=== PATIENT | female | born 1995 | race Caucasian/White ===

== ENCOUNTER 2024-11-05 09:45 | Outpatient (REF) | payer OTHER, SELFPAY ==
--- OUTSIDE RECORDS SUMMARY | 2024-11-05 10:56 | XMS_ITS | Continuity of Care Document ---
Author Organization [facility] Address [address] [place] [address] Phone Care Team Providers Care Control System Computer Scientist Name Role Phone Timi Barker MD Unavailable Unavailable Allergies, Adverse Reactions, Alerts Substance Reaction Status Criticality carbamazepine Bruising, rash Active No Informati on gabapentin Homicidal thoughts Active No Inform ation Procedures Procedure Date Office/outpatient visit, est Office/outpatient visit, est Office/outpatient visit, est EEG Awake Office/outpatient visit, est Extended Advance Directives Directive Yes / No Effective Date File Name No Information Encounters Encounter Description Practice Location Reason(s) For Visit Diagnoses Date Provider Providers Copied on Encounter Office/outpa tient visit, est [facility], [address] [place] [address], [facility], tel:[phone] [facility] Follow Up of Facial Pain (chief complaint) Trigeminal neuralgiaBody mass index (BMI) 19 or less, adult 0 Mj Capellan. [address] [place] [address], [id number], . tel:[phone] Referring Provider: Jin Link MD [place], [address] [place] [address], [id number]. tel:[phone] [facility], [address] [place] [address], [id number], tel:[phone] [facility] Follow Up of Facial Pain (chief complaint) Trigeminal neuralgia 9 Mj Capellan. [address] [place] [address], [facility], . tel: [phone] Referring Provider: Jin Heath, [address] [place] [address], [id number]. tel:[phone] Office/outpa tient visit, est [facility], [address] [place] [address], [address], tel:[phone] [facility] Follow Up of Facial Pain (chief complaint) Trigeminal neuralgia Sep-2 0-201 9 Barker Timi. [address] [place], [address], [place]. tel: [phone] Referring Provider: Jin Heath, [address] [place] [address], [id number]. tel:[phone] Office/outpa tient visit, est [facility], [address] [place] [address], [facility], tel:[phone] [facility] Follow Up of Facial Pain (chief complaint) Trigeminal neuralgiaBody mass index (BMI) 19 or less, adult Mar-2 0-201 9 Mj Martínezter. [address] [place] [address], [address], [place]. tel: [phone] Referring Provider: Jin Heath, [address] [place] [address], [id number]. tel:[phone] [facility], [address] [place] [address], [facility], [place] tel:[phone] [facility] Trigeminal neuralgia Dec-2 7-201 8 Mj Capellan. [address] [place], [address], [place]. tel: [phone] Office/outpa tient visit, est [facility], [address] [place] [address], [address], [place] tel:[phone] [facility] Follow Up of Facial Pain (chief complaint) Trigeminal neuralgia Dec-2 0-201 8 Mj Capellan. [address] [place] [address], [address], [place]. tel: [phone] [facility], [address] [place] [address] [place], [address] [place] [address] tel:[phone] [facility] Facial Pain (chief complaint) Body mass index (BMI) 19 or less, adultTrigemin al neuralgia 8 Mj Capellan. [address] [place], [place], [address] [place] [address]. tel:[phone] Referring Provider: Jin Link MD [facility], [address] [place] [address], [id number]. tel:[phone] Family History Family Member Type Diagnosis Age At Onset Maternal grandmother Problem (finding) Diabetes mellit us Mother Problem (finding) Thyroid disorder Maternal aunt Problem (finding) chromes disease Paternal grandfather Problem (finding) Diabetes mellit us Maternal grandfather Problem (finding) Diabetes mellit us Father Problem (finding) Pancreatitis Paternal grandmother Problem (finding) Diabetes mellit us Payers Payer name Insurance type Covered republican ID Authoriza tion(s) [id number] Social History Type Description Quantity Date Captured Comments Alcohol Use Details Unknown Caffeine Use Details Unknown Tobacco Use Status Smoking Status No Information Sex Female Vital Signs Date / Time: Height Weight BMI Pulse Rate Blood Pressure Temperature Respiratory Rate Body Surface Area Head Circumference BMI percentile Pulse Ox Inhaled Ox 10:25 AM 64.00 in 103.00 lbs 17.6 8 kg/m eter (2) 56 /min 116/49 mm[Hg] 10:59 AM 53 /min 100/55 mm[Hg] Chief Complaint And Reason For Visit From encounter dated '11/19/2019 10:15'. Follow Up of Facial Pain (chief complaint). Description: Onset: 11 years ago. The problem is severe. The problem has not changed. The frequency of pain is persistent. The patient reports the pain level is 10/10. Location of pain is right jaw and right temporal. The patient describes the pain as sharp and dull. Symptoms are triggered by encountering a breeze. Symptoms are not triggered by cold. Risk factors include family history of trigeminal neuralgia. Associated symptoms include tooth pain, vision loss left, aura, vein in jaw will pulsate, migraines, nightmares and trouble sleeping and biting nails. Plan Of Treatment Date Type Action Status Goal Dietary education for weight gain completed Goal Dietary education for weight gain completed Goal Dietary education for weight gain completed Goal Tobacco cessation counseling completed Referral Ordered: EEG Awake ordered Referral Ordered: [facility] Appointment date/timeframe: 10/05/2018 ordered Referral Ordered: MRI Brain W/Dye Appointment date/timeframe: 09/26/2018 ordered History Of Present Illness Encounter Date Complaint History Of Prese nt Illness Follow Up of Facial Pain Onset: 11 years ago. The problem is severe. The problem has not changed. The frequency of pain is persistent. The patient reports the pain level is 10/10. Location of pain is right jaw and right temporal. The patient describes the pain as sharp and dull. Symptoms are triggered by encountering a breeze. Symptoms are not triggered by cold. Risk factors include family history of trigeminal neuralgia. Associated symptoms include tooth pain, vision loss left, aura, vein in jaw will pulsate, migraines, nightmares and trouble sleeping and biting nails. Follow Up of Facial Pain (comments) The patient said she is still not taking any medications and she is still not taking the Lamictal because of the side effects of dizziness and sleepiness. She has been taking chocolate CBD bars from [place], [place]. Follow Up of Facial Pain Onset: 11 years ago. The problem is severe. The problem has not changed. The frequency of pain is persistent. The patient reports the pain level is 10/10. Location of pain is right jaw and right temporal. The patient describes the pain as sharp and dull. Symptoms are triggered by encountering a breeze and cold. Risk factors include family history of trigeminal neuralgia. Associated symptoms include tooth pain, vision loss left, aura, vein in jaw will pulsate, migraines, nightmares, trouble sleeping and biting nails. Follow Up of Facial Pain Onset: 11 years ago. The problem is severe. The problem has not changed. The frequency of pain is persistent. The patient reports the pain level is 10/10. Location of pain is right jaw and right temporal. The patient describes the pain as sharp and dull. Symptoms are triggered by encountering a breeze. Symptoms are not triggered by cold. Risk factors include family history of trigeminal neuralgia. Associated symptoms include tooth pain, vision loss left, aura, vein in jaw will pulsate, migraines, nightmares, trouble sleeping and biting nails. Follow Up of Facial Pain (comments) She states the Soma and Lamotrigine worked well but she does not know if she wants to start back on them because of the side effects. She states her doctor mentioned they could do gamma knife or a balloon procedure but she states she was not sure about those procedures. She states having three surgeries. 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 She states they did a washout and removed the mesh but the infection is still present. The infection is also in her bones and muscles. She was on a pic line for a couple of months.She is having some pain from the Trigeminal neuralgia but it is not as severe yet. Follow Up of Facial Pain Onset: 4 months ago. Duration of pain when it occurs is continuous. The problem is severe. The problem has not changed. The patient reports the pain level is 10/10. Location of pain is right jaw and right temporal. The patient describes the pain as sharp and dull. Symptoms are triggered by encountering a breeze. Symptoms are not triggered by cold. Risk factors include family history of trigeminal neuralgia and history of Trigeminal neuralgia. Associated symptoms include tooth pain, vision loss left, aura, vein in jaw will pulsate, migraines, nightmares, trouble sleeping and and biting nails. Follow Up of Facial Pain (comments) The patient states that she was started on Baclofen but she does not like the way it makes her feel. It makes her nauseous and gives her a headache. She also states that the Lyrica we started her on makes her sleepy and nauseous. She is going to have vascular surgery with [facility]. She wanted to know about possibly getting injections for nerve blockage. Test Results:-EEG: Normal Follow Up of Facial Pain Onset: 1 month ago. Duration of pain when it occurs is continuous. The problem is severe. The problem has not changed. The patient reports the pain level is 10/10. Location of pain is right jaw and right temporal. The patient describes the pain as sharp and dull. Symptoms are triggered by encountering a breeze. Symptoms are not triggered by cold. Risk factors include family history of trigeminal neuralgia and history of trigeminal neuralgia. Associated symptoms include tooth pain, vision loss left, aura, vein and jaw will start pulsing, migraines, nightmares, trouble sleeping and and biting nails. Follow Up of Facial Pain (comments) She has tried Gabapentin, it did not work and it caused he to be very aggressive. She has not tried Lyrica. She has been having problems with hallucinating and being delusional. She thought her daughter was possessed and it freaked her out. She is also paranoid but no suicidal thoughts. It felt very real to her but she kept reminding herself that it was not real. The patient does experience some Curry Vu but no seizures or loss of consciousness. At this time she is not seeing a psychiatrist.Test Results:-LP: OP 8.5cm of H2O, zero oligoclonal bands, serum Albumin 5.0, CSF Albumin 13, CSF Glucose 57, IgG Synthesis Ratio (-) 1.9, CSF Total Protein 32, CSF VDRL non reactive, WBC 1, Lymphocytes 100, RBC 0, IgG 913.-MRI Brain: Negative StudyLab Results:-CMP was normal except: A/G Ratio 2.3, BUN 5, and BUN/Creatinine 7-RODERICK, CBC, CPK, Hep Panel, Lyme Disease, MMA(183), PT, PTT, RPR, Sed Rate, TSH, West Nile, JOHN, HIV and VB12(447) were all normal. Facial Pain (comments) For six d ays she had the facial pain. It was initially brought on by cold. It does seem to get exacerbated by movements such as eating. She has a history of Trigeminal Neuralgia on the left that started April 25, 2018.She has urinary urgency. She states some time when standing up her legs become tingly. She states when having a flareup from the Trigeminal Neuralgia she loses vision. She will see dots first and then has the vision loss on the left for a couple of minutes. She is not having the pain right now. She states the pain does not occur every day. The pain on the right is triggered by cold. She has noticed stress can trigger the pain on the left side.She also reports having trouble remembering. She does not remember the of her children. She gets lost. She is able to cook, clean and take care of the house. When driving she has to use the GPS.Testing:-MRI Brain: No acute intracranial abnormality, or gross mass, or abnormal enhancement. Incidental minimal sinus disease. Facial Pain Onset: 3 weeks a go. Duration of pain when it occurs is continuous. The problem is severe. The problem has not changed. The patient reports the pain level is 10/10. Location of pain is right jaw and right temporal. The patient describes the pain as sharp and dull. Symptoms are triggered by encountering a breeze and the cold. Risk factors include family history of trigeminal neuralgia and history of trigeminal neuralgia. Associated symptoms include tooth pain, vision loss left, aura, vein and jaw will start pulsing, migraines, nightmares, trouble sleeping and biting nails. Additional information: feels like she has an icepick in her ear and when that happens she gets a pain down the right side of her neck. Instructions Date Instruction Additional Infor dilia Dietary education for weight gai n Related to Body mass index (BMI) 19.9 or less, adult Dietary education for weight gai n Related to Body mass index (BMI) 19.9 or less, adult Dietary education for weight gai n Related to Body mass index (BMI) 19.9 or less, adult Assessments Type Assessment Date assessment Trigeminal neuralgia assessment Body mass index (BMI) 19.9 or le ss, adult Mental Status Date Cognitive Assessment Normal Orientation
[2024-11-05 13:05] LABS: MANUAL DIFF FLAG NO
[2024-11-05 13:20] LABS: Basophils Percent Auto 0.7 % (0-2); Eosinophils Absolute Auto 0.1 X10*3/uL (0.0-0.4); Eosinophils Percent Auto 1.8 % (0-4); Hematocrit 38.8 % (37.0-47.0); Hemoglobin 13.3 g/dl (12.0-16.0); Imm Gran Abs Auto 0.04 X10*3/uL (0.00-0.03); Imm Gran Pct Auto 0.9 % (0.0-0.4); Lymphocytes Absolute Auto 1.7 X10*3/uL (1.2-4.9); Lymphocytes Percent Auto 37.7 % (20-40); Mean Corpuscular HGB Conc 34.3 g/dl (31.0-35.0); Mean Corpuscular Hemoglobin 30.2 pg (27.0-33.0); Mean Corpuscular Volume 88.2 fL (80.0-98.0); Mean Platelet Volume 11.2 fL (9.4-12.3); Monocytes Absolute Auto 0.4 X10*3/uL (0.1-1.2); Monocytes Percent Auto 8.8 % (2-11); Neutrophils Absolute Auto 2.3 x10*3/uL (2.0-8.3); Neutrophils Percent Auto 50.1 % (45-73); Platelet Count 180 X10*3/uL (160-400); Red Cell Distribution Width 11.5 % (11.0-16.0); White Blood Count 4.5 X10*3/uL (4.8-10.8)
[2024-11-05 13:42] LABS: Rheumatoid Factor < 13.0 IU/mL (<15.0)
[2024-11-05 13:49] LABS: Alanine Aminotransferase 9 U/L (0-31); Albumin Level 4.4 g/dL (3.5-5.0); Alkaline Phosphatase 55 U/L (39-117); Anion Gap 11 (12-20); Aspartate Amino Transferase 19 U/L (5-31); Bilirubin Total 0.2 mg/dL (0.0-1.0); Blood Urea Nitrogen 10 mg/dL (9-16); C Reactive Protein < 0.04 mg/dL (< or = 0.50); Carbon Dioxide 25 mmol/L (22-29); Chloride 108 mmol/L (96-108); Estimated Glomerular Filt Rate > 60; Glucose Random 82 mg/dL (60-115); Iron 52 mcg/dL (30-160); Percent Iron Saturation 30 % (15-50); Potassium 3.7 mmol/L (3.3-5.1); Sodium 140 mmol/L (135-145); Total Iron Binding Capacity 176 mcg/dL (228-428); Total Protein 6.7 g/dL (6.5-8.0); Unsaturated Iron Binding 124 ug/dL
[2024-11-05 13:59] LABS: Erythrocyte Sedimentation Rate 2 MM/HR (0-20)
[2024-11-05 14:10] LABS: Ferritin 18 ng/mL (10-122); Free T4 (Free Thyroxine) 0.81 ng/dL (0.71-1.85); TSH reflex Free T4 1.35 uIU/mL (0.32-4.0); Vitamin D 25-OH Total 55.3 ng/mL (>30)
[2024-11-05 14:12] LABS: Folate 9.8 ng/mL (> or = 4.0); Vitamin B12 422 pg/mL (200-900)
[2024-11-06 15:39] LABS: Anti DNA DS Antibody 1 IU/mL
[2024-11-07 00:24] LABS: Thyroglobulin 2.7 ng/mL; Thyroglobulin Antibodies 3 IU/mL (< or = 1); Thyroid Peroxidase Antibodies 1 IU/mL (<9)
[2024-11-08 12:54] LABS: Anti Nuclear Antibody Screen POSITIVE (NEGATIVE)
== END 2024-11-05 09:46 | disposition home or self-care (01) ==
LOC: HO.HMGCLDS 09:45
PROVIDERS: PCP Internal Medicine; Visit Provider Internal Medicine
DX: R76.8 Other specified abnormal immunological findings in serum (principal); E06.3 Autoimmune thyroiditis; R53.83 Other fatigue
CPT/HCPCS: 36415; 80053; 82306; 82607; 82728; 82746; 83540; 84432; 84439; 84443; 85025; 85652; 86038; 86039; 86140; 86225; 86376; 86431; 86800

== ENCOUNTER 2024-11-16 11:50 | Outpatient (REF) | payer OTHER, SELFPAY ==
--- OUTSIDE RECORDS SUMMARY | 2024-11-16 14:00 | XMS_ITS ---
Author Organization [facility] MAIN OFFICE Address [address] [place] [id number] Care Team Providers Care [place] Name Role Phone MARTI VENCES Primary Care Provider DELONTE REYNOLDS [phone] Marti Vences DO Unavailable Unavailab le REASON FOR VISIT Med records Encounters Encounter Location Date Provider Diagnosis [address] [address] 08/23/2024 MARTI VENCES Plan Of Treatment No Information Progress Notes * JAN BROOKE RDOB:1994 (29 yo F)Acc No.[id number]:08/23/2024 Patient:?JAN BROOKE :1995???Age:29 Y???Sex:Female Address:[address] [place] [address] Natalya MA Roque * true * Date:? Generated for Printi ng/Romang/eTransmitting on:?11/16/2024 02:00 PM EST
--- OUTSIDE RECORDS SUMMARY | 2024-11-16 14:00 | XMS_ITS ---
Author Organization [facility] MAIN OFFICE Address [address] [place] [address] Care Team Providers Care Government Relations Director Name Role Phone MARTI VENCES Primary Care Provider DELONTE REYNOLDS [phone] Marti Vences DO Unavailable Unavailab le REASON FOR VISIT Refills Medications Medication SIG (Take, Route, Frequency, Duration) Notes Start Date End Date Status Plaquenil 200 MG as directed Orally t wice a day for 90 days 08/09/2023 Active Abilify 20 MG 1 tablet Orally Once a day for 90 days 01/09/2024 Active Pristiq 100 MG 1 tablet Orally Once a day for 90 days 10/12/2023 Active Methylphenidate HCl 10 MG 1.5 tablets Or ally three times per day for 30 days 07/30/2024 Active Encounters Encounter Location Date Provider Diagnosis [address] [address] 07/30/2024 MARTI VENCES Polyarthralgia M25.5 0 ; Moderate episode of recurrent major depressive disorder F33.1 ; Bipolar disorder, current episode mixed, moderate F31.62 and Attention deficit disorder without hyperactivity F98.8 Assessments Encounter Date Diagnosis (ICD Code) Assessment Notes Treatment Notes Treatment Clinical Notes Section Notes 07/30/2024 Polyarthralgia (ICD-10 - M25.50) 07/30/2024 Moderate episode of recurrent major depressive disorder (ICD-10 - F33.1) 07/30/2024 Bipolar disorder, current episode mixed, moderate (ICD-10 - F31.62) 07/30/2024 Attention deficit disorder without hyperactivity (ICD-10 - F98.8) Plan Of Treatment Medication Medication Name Sig Start Date Stop Date Notes Plaquenil 200 MG as directed Orally t wice a day for 90 days 08/09/2023 Vraylar 3 MG 1 capsule Orally Once a day 04/11/2024 Abilify 20 MG 1 tablet Orally Once a day for 90 days 01/09/2024 Pristiq 100 MG 1 tablet Orally Once a day for 90 days 10/12/2023 Methylphenidate HCl 10 MG 1.5 tablets Or ally three times per day for 30 days 07/30/2024 Progress Notes * JAIMEMOISES JAN RDOB:1994 (29 yo F)Acc No.[id number]:07/30/2024 Patient:?ZAY BROOKENAH R :1995???Age:29 Y???Sex:Female Address:[address] [place] [address] * Refills? Refill Plaquenil Tablet, 200 MG, Orally, 180, as directed, twice a day, 90 days, Refills=2 Refill Pristiq Tablet Extended Release 24 Hour, 100 MG, Orally, 90, 1 tablet, Once a day, 90 days, Refills=3 Refill Abilify Tablet, 20 MG, Orally, 90 Tablet, 1 tablet, Once a day, 90 days, Refills=2 Stop Vraylar Capsule, 3 MG, Orally, 1 capsule, Once a day Refill Methylphenidate HCl Tablet, 10 MG, Orally, 135, 1.5 tablets, three times per day, 30 days, Refills=0 * true * Date:? Generated for Walt chaparro/Jeannine/Vivian on:?11/16/2024 02:00 PM EST
--- OUTSIDE RECORDS SUMMARY | 2024-11-16 14:00 | XMS_ITS | Data Portability ---
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 MUST MEET 2 OUT OF 3 ELEMENTS: PROBLEMS, DATA OR RISK ELEMENT 1: PROBLEMS 1 OR MORE CHRONIC ILLNESS W/SEVERE EXACERBATION, PROGRESSION MAY REQUIRE HOSPITAL LEVEL CARE OR 1 ACUTE OR CHRONIC ILLNESS OR INJURY THAT POSES A THREAT TO LIFE OR BODILY FUNCTION ELEMENT 2: DATA: MUST MEET 2 OF 3 CATEGORIES CATEGORY 1 REVIEW OF PRIOR EXTERNAL NOTES REVIEW OF THE RESULTS ORDERING OF EACH TEST ASSESSMENT REQUIRING INDEPENDENT HISTORIAN(S) CATEGORY 2: INDEPENDENT INTERPRETATION OF TESTS BY ANOTHER PROVIDER/SPECIALI ST CATEGORY 3: DISCUSSION OF MGT OR TEST INTERPRETATION W/EXTERNAL PHYSICIAN/SPECIAL IST ELEMENT 3: RISK HIGH RISK OF MORBIDITY FROM ADDITIONAL DIAGNOSTIC TESTING OR TREATMENT PROVIDER MUST THOROUGHLY DOCUMENT EACH ELEMENT THAT IS COVERED Not available 10/23/2024 11:24:02 11/16/2024 11/16/2024 [id number] [place] [id number]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) [facility] MUST MEET 2 OUT OF 3 ELEMENTS: PROBLEMS, DATA OR RISK ELEMENT 1: PROBLEMS 1 OR MORE CHRONIC ILLNESS W/SEVERE EXACERBATION, PROGRESSION MAY REQUIRE HOSPITAL LEVEL CARE OR 1 ACUTE OR CHRONIC ILLNESS OR INJURY THAT POSES A THREAT TO LIFE OR BODILY FUNCTION ELEMENT 2: DATA: MUST MEET 2 OF 3 CATEGORIES CATEGORY 1 REVIEW OF PRIOR EXTERNAL NOTES REVIEW OF THE RESULTS ORDERING OF EACH TEST ASSESSMENT REQUIRING INDEPENDENT HISTORIAN(S) CATEGORY 2: INDEPENDENT INTERPRETATION OF TESTS BY ANOTHER PROVIDER/SPECIALI ST CATEGORY 3: DISCUSSION OF MGT OR TEST INTERPRETATION W/EXTERNAL PHYSICIAN/SPECIAL IST ELEMENT 3: RISK HIGH RISK OF MORBIDITY FROM ADDITIONAL DIAGNOSTIC TESTING OR TREATMENT PROVIDER MUST THOROUGHLY DOCUMENT EACH ELEMENT THAT IS COVERED Not available 11/16/2024 09:36:08 Plan of Treatment Reminders Order Date Submit Date Provider Last Modified By Organization Details Last Modified Time Details Appointments FOLLOW UP 15 2024 09:00A M DR CASTELLANO Not available Not available Not available FOLLOW UP 15 2024 03:45P M DR CASTELLANO Not available Not available Not available Lab RODERICK (antinucl ear antibodie s) screen, serum 2023 [facility] Not available 11/09/2024 12:21:50 C-reactiv e protein, quantitat fransico, serum or plasma 2023 Not available 10/23/2024 11:46:24 erythrocy te sedimenta tion rate by westergre n method 2023 Not available 10/23/2024 11:46:24 rf (rheumato id factor), serum 2023 Not available 10/23/2024 11:46:24 dsDNA Ab, serum 2023 Not available 10/23/2024 11:46:24 thyroid peroxidas e (tpo) Ab, serum 2023 Not available 10/23/2024 11:46:23 T4, free, serum 2023 Not available 10/23/2024 11:46:23 TSH + free T4, serum 2023 [facility] Not available 11/06/2024 12:35:12 thyroglob ulin Ab, serum 2023 [facility] Not available 11/07/2024 12:31:11 vitamin B12 + folate, serum or blood 2023 [facility] Not available 11/06/2024 12:35:12 vitamin D, 25-hydrox y, total, serum 2023 Not available 10/23/2024 11:46:24 CBC w/ auto diff 2023 024 Not available 10/23/2024 11:46:24 CMP, serum or plasma 2023 [facility] Not available 11/06/2024 12:35:12 iron + TIBC + ferritin, serum 2023 [facility] Not available 11/06/2024 12:35:12 C-reactiv e protein, quantitat fransico, serum or plasma 2024 [facility], [address] [place] [address], [id number], 11/16/2024 09:38:17 erythrocy te sedimenta tion rate by westergre n method 2024 [facility], [address] [place] [address], [id number], 11/16/2024 09:38:17 dsDNA Ab, serum 2024 [facility], [address] [place] [address], [id number], 11/16/2024 09:38:17 rf (rheumato id factor), serum 2024 [facility], [address] [place] [address], [id number], 11/16/2024 09:38:17 C3 + C4 (compleme nt), serum 2024 [facility], [address] [place] [address], [id number], 11/16/2024 09:38:17 sjogren antibody panel (ssa, ssb, ro, la), serum 2024 [email or web address] Not available 11/16/2024 10:24:50 anti-ssdn a Ab, serum 2024 [facility], [address] [place] [address], [id number], 11/16/2024 09:38:17 Referral rheumatol ogist referral 2024 025 [facility], [address] [place] [address], [id number], 11/16/2024 09:43:42 Procedures None recorded. Surgeries None recorded. Imaging None recorded. Medication Orders Seroquel 25 mg tablet 2023 [id number], [address], [place], [phone], 10/23/2024 11:35:57 Adderall 10 mg tablet 2023 024 [id number], [address], [place], [phone], 10/23/2024 11:35:57 Seroquel 50 mg tablet 2024 025 [id number], [address], [place], [phone], 11/16/2024 09:35:00 Adderall 10 mg tablet 2024 025 [facility] #[id number], [address], [place], [phone], 11/16/2024 09:34:59 Patient TargetsNo targets recorded. Patient Instructions Encounter Date Encounter Id Patient Instructions Last Modified By Organization Details Last Modified Time 10/23/2024 [id number] attention defici t hyperactivity disorder (ADHD) in adults: care instructions Not available 10/23/2024 11:35:51 Reason for Referral [employer] Referral for Anti-nuclear factor detected Referring Physician: Gabe Castellano, Internal Medicine, Encounter Date: 11/16/2024 Results Created Date Observation Date Name Description Value Unit Range Abnormal Flag Note LastModifiedBy Organization Detail LastModifiedTime Result Notes None recorded. Problems Name Problem SNOMED Code Status Onset Date Resolution Date Notes Provider Name and Address Organization Details Recorded Time Adult attentio n deficit hyperact ivity disorder 293827294 Active 2023 Gabe CastellanoDO [address] [place] [address], [phone], [facility] 4 11:16:38 Bipolar disorder 82195812 Active 2023 Gabe CastellanoDO [address] [place] [address], [address], [facility] 4 11:16:52 Trigemin al neuralgi a 77474284 Active 2023 s/p surgery brain X 4 including 2 decompres sions secondary to infection Gabe Castellano [address], [address], [facility] 4 11:21:13 Anti-nuc lear factor detected 106477683 Active 2023 Gabe Castellano [address], [address], [facility] 4 11:26:07 Autoimmu ne thyroidi tis 55334555 Active 2023 Gabe Castellano [address], [address], [facility] 4 11:28:56 Fatigue 86271612 Active 2023 Gabe Castellano [address], [address], [facility] 4 11:31:16 Problem Notes None recorded. Medical Equipment None Reported. Allergies Allergen ID Allergen Name Allergen Category Reaction Reaction Severity Criticality Documentation Date Start Date Code Code System Note Provider Name and Address Organization Details Recorded Time 8634 gabapenti n medicatio n other Not available Not available 10/23/2024 79635 [facility] 4 10:43:25 8635 carbamaze pine medicatio n rash Not available Not available 10/23/20242001 RxNorm Aristeo castro [facility] 4 10:43:38 8636 clonazepa m medicatio n Not available Not available Not available 10/23/2024 2598 [facility] 10:44:21 8637 acetamino phen / oxycodone medicatio n vomiting Not available Not available 10/23/2024 18276 3 [facility] 4 10:44:36 Medications Name Sig Start Date Stop Date Status Note LastModified by Organization Details LastModified Time quetiapine 25 mg tablet TAKE 1 TABLET BY MOUTH EVERY DAY active Not Available Not Available No t Available methylphenida te 10 mg tablet 10/23 completed Not Available Not Available Not Available ondansetron HCl 8 mg tablet active Not Available Not Available Not Available methylphenida te 5 mg tablet 10/23 completed Not Available Not Available Not Available prednisone 5 mg tablet 10/23 completed Not Available Not Available Not Available tretinoin 0.05 % topical cream active Not Available Not Availabl e Not Available sulfamethoxaz ole 800 mg-trimethopr im 160 mg tablet 10/23 completed Not Available Not Available Not Available triamcinolone acetonide 0.1 % topical cream 10/23 completed Not Available Not Available Not Available methocarbamol 750 mg tablet 10/23 completed Not Available Not Available Not Available hydroxychloro quine 200 mg tablet 10/23 completed Not Available Not Available Not Available ibuprofen 600 mg tablet 10/23 completed Not Available Not Available Not Available Adderall 10 mg tablet Take 1 tablet twice a day by oral route for 30 days. 2024 active Not Available Not Available Not Avai lable aripiprazole 20 mg tablet active Not Available Not Available Not Available aripiprazole 5 mg tablet 10/23 completed Not Available Not Available Not Available Ritalin LA 10 mg capsule,exten ded release 10/23 completed Not Available Not Available Not Available Seroquel 50 mg tablet Take 1 tablet every day by oral route for 30 days. 2024 active Not Available Not Available Not Avai lable desvenlafaxin e succinate ER 50 mg tablet,extend ed release 24 hr 10/23 completed Not Available Not Available Not Available desvenlafaxin e succinate ER 100 mg tablet,extend ed release 24 hr active Not Available Not Available Not Available diclofenac 1 % topical gel active Not Available Not Availabl e Not Available Addyi 100 mg tablet active Not Available Not Available Not Available Vraylar 1.5 mg capsule 10/23 completed Not Available Not Available Not Available hydroxychloro quine 100 mg tablet Take 1 tablet every day by oral route. active Not Available Not Available No t Available Vitals Date Recorded Body height Body mass index (BMI) Body weight Heart rate Oxygen saturation Oxygen saturation in Arterial blood by Pulse oximetry Systolic blood pressure Diastolic blood pressure Provider Name and Address Organization Details Last Updated DateTime 4 162.56 cm 18.2 kg/m2 55536.7 9 g 84 /min 100 % 100 % 126 mm[Hg] 60 mm[Hg] Aristeo Whittaker [facility] 4 10:51:54 Date Recorded Body height Body mass index (BMI) Body weight Heart rate Oxygen saturation Oxygen saturation in Arterial blood by Pulse oximetry Systolic blood pressure Diastolic blood pressure Provider Name and Address Organization Details Last Updated DateTime 5 162.56 cm 18 kg/m2 69802.2 g 89 /min 100 % 100 % 98 mm[Hg] 60 mm[Hg] Kristel John [facility] 5 09:05:08 Social History Question Answer Notes LastModified by Organizat ion Details LastModified Time Tobacco Smoking Status Current Every Day Smoker Vaping, Smoking Cessation Interest Aristeo castro [facility] 10/23/2024 10:49:07 What Was The Date Of Your Most Recent Tobacco Screening? 10/23/2024 [email or web address] Information not available 10/23/2024 Sex: Unknown Functional Status None recorded. Mental Status None recorded. Family History Nothing Reported. Medical History No medical history recorded. Gynecological HistoryNo gynecological history recorded. Obstetrics History GPAL:G 0 P 0 0 0 0 Past Encounters Encounter ID Performer Location Encounter Start Date Encounter Closed Date Diagnosis/Indication Diagnosis SNOMED-CT Code Diagnosis ICD10 Code Diagnosis Note [id number] Gabe Castellano DO [facility] [address],[place] [address] 10/23/2024 10:35:46 10/23/2024 11:39:12 Depression screening 107262356 Z13.31 hx of Adult atte ntion deficit hyperactivity disorder 443692796 F90.9 will stop methylphen and start adderall Trigeminal neuralgia 316 45372 G50.0 will try to get her on a program for iv infus Vyepti Anti-nucle ar factor detected 570276723 R76.8 had been on hydro chlor in the past but lupus was ruled out Autoimmune thyroiditis 63008944 E06.3 Fatigue 48412711 R53.83 [id number] Gabe Castellano DO [facility] [address],[place] [address] 11/16/2024 08:57:04 11/16/2024 09:43:42 Anti-nuclear factor detected 744221680 R76.8 had been on hydro chlor in the past but lupus was ruled out Depression screening 171 400974 Z13.31 hx of Adult atte ntion deficit hyperactivity disorder 051737983 F90.9 will stop methylphen and start adderall Health Concerns Section Related Observation LastModified by Organization Detai ls LastModified Time None Recorded Concern Status LastModified by Organization Details LastModified Time None Recorded Advance Directives Directive None Recorded Payers Encounter Date Sequence Insurance Name Policy Number Policy [place] Covered Member ID [place] Member ID Guarantor Name 10/23/2024 1 [employer] - DOS PRIOR TO 2024 - [employer] () Velma Ruiz [id number] Velma Ruiz 11/16/2024 1 [employer] - DOS ON OR AFTER 2024 - [employer] () Velma Ruiz [id number] Velma Ruiz Notes Date Note Type Note Provider Name a nd Address Organization Details Recorded Time 4 text/html here Gabe Castellano DO [address] [place] [address], [place], [address], [facility] 10/23/2024 11:37:37 5 text/html has taken the meds as prescibedrelates that overall felt better and relates has been more focused but this wears off and will have her go back to her unfocused staterelates in past has been on a bid tid dose patternthis had workedalso discussed the lab Gabe Castellano, DO [address] [facility], [place], [address], [facility] 11/16/2024 09:36:24 OBGyn Episode No OBEpisode recorded.
--- OUTSIDE RECORDS SUMMARY | 2024-11-16 14:00 | XMS_ITS | Continuity of Care Document ---
Author Name [facility] Organization [facility] Care Team Providers Care Straightener And Aligner Name Role Phone [facility] Unavailable Unavailable Problems Combined list of problems from Department of Defense and Veterans Affairs facilities. It does not include entries that were removed or entered in error. Problem Status Onset Date Problem Type Date of Resolution Comments Source Other mixed anxiety disorders Active Condition DoD Trigeminal neuralgia Active Condition D oD Primary dysmenorrhea Active Condition D oD Outpatient Physician Consultation Active Condition [facility] visit for: administrative purpose Inactive Condition [facility] exam with positive result Inactive Condition [facility] normal Inactive Condition [facility] pharyngitis acute viral Inactive Condition [facility] upper respiratory infection Inactive Condition [facility] Inactive Condition [facility] nausea with vomiting Inactive Condition [facility] Test Inactive Condition [facility] Medications Combined list of outpatient medications from Department of Defense and Veterans Affairs facilities.Medications provided include 1) outpatient medications from the last 15 months, and 2) patient-reported medications. Medication Details Route Status Patient Instructions Prescription Expires Prescription Number Last Dispense Date Ordering Provider Order Date Order Qty Source Addyi 100 mg tablet 100 mg, Oral, every day at bedtime, # 30 EA, 1 total refill(s ), Hard Stop Oral (given by mouth) Ordered 12/19/2024 30.0 Ambul at ory Pharmac y Amphetamine Aspartate 2.5mg + Amphetamine Sulfate 2.5mg + Dextroamphe tamine saccharate 2.5mg + Dextroamphe tamine Sulfate 2.5mg, Tablet, Oral Take or use exactly as directed .May impair driving. This prescrip tion cannot be refilled .Federal law prohibit s transfer of prescrip tion. 10/08/2024 [id number] 2023 60 [facility] amphetamine -dextroamph etamine 10 mg tablet 10 mg, Oral, BID, # 60 EA, 0 total refill(s ), Hard Stop Oral (given by mouth) Complet ed 10/08/2024 60.0 Ambulat ory Pharmac y ARIPiprazol e 20 MG ORAL TAB Do not drink alcohol. Take or use exactly as directed .Obtain advice for OTCs.May cause drowsine ss/dizzi ness.May impair driving. Check with your doctor before becoming . Active 02/28/2025 [id number] 4 2023 [facility] ARIPiprazol e 20 mg tablet 20 mg, Oral, Daily, # 90 EA, 3 total refill(s ), Hard Stop Oral (given by mouth) Ordered 02/28/2025 90.0 Ambul at ory Pharmac y ARIPiprazol e 5 MG ORAL TAB Do not drink alcohol. Take or use exactly as directed .Obtain advice for OTCs.May cause drowsine ss/dizzi ness.May impair driving. Check with your doctor before becoming . Active 01/08/2025 [id number] 4 2023 [facility] ARIPiprazol e 5 mg tablet 5 mg, Oral, Daily, # 30 EA, 1 total refill(s ), Hard Stop Oral (given by mouth) Discont inued 02/29/2024 30.0 Ambulat ory Pharmac y atenolol 25 mg tablet 25 mg, Oral, Daily, # 30 EA, 1 total refill(s ), Hard Stop Oral (given by mouth) Complet ed 07/24/2024 30.0 Ambulat ory Pharmac y atomoxetine 40 mg capsule 40 mg, Oral, every morning, # 30 EA, 1 total refill(s ), Hard Stop Oral (given by mouth) Complet ed 11/24/2023 30.0 Ambulat ory Pharmac y buPROPion XL 150 mg/24 hour tablet 150 mg, Oral, every morning, # 30 EA, 3 total refill(s ), Hard Stop Oral (given by mouth) Complet ed 02/17/2024 30.0 Ambulat ory Pharmac y CARIPRAZINE 1.5 MG ORAL CAP Obtain advice for OTCs.May cause drowsine ss/dizzi ness.May impair driving. Check with your doctor before becoming . Active 04/11/2025 [id number] 4 2023 [facility] clindamycin 2% vaginal cream [40g] See Rx Instruct ions, # 40 g, 0 total refill(s ), Hard Stop Complet ed 10/28/2023 40.0 Ambulat ory Pharmac y desvenlafax ine ER 100 mg tablet 100 mg, Oral, Daily, # 90 EA, 3 total refill(s ), Hard Stop Oral (given by mouth) Ordered 05/10/2025 90.0 Ambul at ory Pharmac y desvenlafax ine ER 100 mg tablet 100 mg, Oral, Daily, # 90 EA, 0 total refill(s ), Hard Stop Oral (given by mouth) Discont inued 02/29/2024 90.0 Ambulat ory Pharmac y desvenlafax ine ER 25 mg tablet 25 mg, Oral, Daily, # 30 EA, 1 total refill(s ), Hard Stop Oral (given by mouth) Discont inued 12/20/2023 30.0 Ambulat ory Pharmac y desvenlafax ine ER 50 mg tablet 50 mg, Oral, Daily, # 90 EA, 3 total refill(s ), Hard Stop Oral (given by mouth) Discont inued 12/20/2023 90.0 Ambulat ory Pharmac y DESVENLAFAX INE SUCC 100 MG ORAL TB24 Do not drink alcohol. Obtain advice for OTCs.May impair driving. Check with your doctor before becoming .Do not chew or crush. Active 02/28/2025 [id number] 4 2023 90 [facility] DESVENLAFAX INE SUCC 100 MG ORAL TB24 Do not drink alcohol. Obtain advice for OTCs.May impair driving. Check with your doctor before becoming .Do not chew or crush. Active 12/19/2024 [id number] 4 2023 90 [facility] DESVENLAFAX INE SUCC 50 MG ORAL TB24 Do not drink alcohol. Obtain advice for OTCs.May impair driving. Check with your doctor before becoming .Do not chew or crush. 10/11/2024 [id number] 3 2023 90 [facility] diclofenac 1% gel [100g] See Instruct ions, # 100 g, 2 total refill(s ), Hard Stop Ordered 05/10/2025 100.0 Ambul at ory Pharmac y diclofenac 1% gel [100g] See Rx Instruct ions, Topical, QID, # 200 g, 2 total refill(s ), Hard Stop Topica l (on the skin) Complet ed 11/24/2023 200[address] Morfin Prednisone Tablet 5 mg Oral Take with food/mil k.Take or use exactly as directed .Obtain advice for OTCs. 10/11/2024 [id number] 3 2023 30 [facility] FLIBANSERIN 100 MG ORAL TAB May cause drowsine ss.Obtai n advice for OTCs.May impair driving. Check with your doctor before becoming .Avoid grapefru it and grapefru it juice. Active 12/19/2024 [id number] 4 2023 30 [facility] HYDROcodone -acetaminop hen 7.5 mg-325 mg tablet See Instruct ions, Oral, # 20 EA, 0 total refill(s ), Hard Stop Oral (given by mouth) Complet ed 08/17/2023 20.0 Ambulat ory Pharmac y Hydroxychlo roquine Sulfate (Vargas) Tablet 200 mg Oral Take or use exactly as directed . 10/11/2024 [id number] 3 2023 180 [facility] hydrOXYzine hydrochlori de 25 mg tablet 50 mg, Oral, Daily, # 60 EA, 1 total refill(s ), Hard Stop Oral (given by mouth) Complet ed 11/24/2023 60.0 Ambulat ory Pharmac y hydrOXYzine pamoate 25 mg oral capsule TAKE 1 TO 2 CAPSULES BY MOUTH EVERY SIX HOURS NEEDED FOR ANXIETY, # 40 EA, 1 total refill(s ), Acute Complet ed 08/18/2022 40.0 Ambulat ory Pharmac y ibuprofen 600 mg tablet See Instruct ions, Oral, # 20 EA, 0 total refill(s ), Hard Stop Oral (given by mouth) Complet ed 02/18/2024 20.0 Ambulat ory Pharmac y IRX:ONDANSE COLEMAN 8MG TAB C.2018.023- -PO 8 Active 04/11/2025 [id number] 4 2023 [facility] levETIRAcet am 250 mg oral tablet TAKE 1 TO 2 TABLETS BY MOUTH TWICE A DAY, # 120 EA, 2 total refill(s ), Acute Discont inued 09/29/2022 120.0 Ambulat ory Pharmac y levETIRAcet am [xlcare] 250 mg tablet 500 mg, Oral, every 12 hr, # 120 EA, 2 total refill(s ), Hard Stop Oral (given by mouth) Complet ed 11/24/2023 120.0 Ambulat ory Pharmac y levETIRAcet am [XLCare] 250 mg tablet 500 mg, Oral, every 12 hr, # 120 EA, 2 total refill(s ), Hard Stop Oral (given by mouth) Complet ed 09/23/2023 120.0 Ambulat ory Pharmac y methylpheni date 10 mg tablet See Instruct ions, # 135 EA, 0 total refill(s ), Hard Stop Complet ed 06/10/2024 135.0 Ambulat ory Pharmac y methylpheni date 10 mg tablet See Instruct ions, # 90 EA, 0 total refill(s ), Hard Stop Discont inued 04/16/2024 90.0 Ambulat ory Pharmac y Methylpheni date 10mg CAPSULE,EXT ENDED RELEASE BIPHASIC 50-50, Oral Do not drink alcohol. Obtain advice for OTCs.Thi s prescrip tion cannot be refilled .Federal law prohibit s transfer of prescrip tion.Vicky ck with your doctor before becoming .Do not chew or crush. 08/27/2024 [id number] 4 2023 [facility] methylpheni date 5 mg tablet See Instruct ions, # 14 EA, 0 total refill(s ), Hard Stop Discont inued 02/29/2024 14.0 Ambulat ory Pharmac y Methylpheni date Hydrochlori de (Methylin Eq.) Tablet 10 mg Oral Take or use exactly as directed .May impair driving. This prescrip tion cannot be refilled .Federal law prohibit s transfer of prescrip tion. 09/09/2024 [id number] 4 2023 [facility] Methylpheni date Hydrochlori de (Methylin Eq.) Tablet 5 mg Oral Take or use exactly as directed .May impair driving. This prescrip tion cannot be refilled .Federal law prohibit s transfer of prescrip tion. 08/08/2024 [id number] 4 2023 [facility] Methylpheni date Hydrochlori de (Methylin Eq.) Tablet 5 mg Oral Take or use exactly as directed .May impair driving. This prescrip tion cannot be refilled .Federal law prohibit s transfer of prescrip tion. 08/05/2024 [id number] 4 2023 14 [facility] methylPREDN ISolone 4 mg tablet Dose Pack [21EA] See Instruct ions, # 21 EA, 0 total refill(s ), Hard Stop Discont inued 10/26/2023 21.0 Ambulat ory Pharmac y metroNIDAZO LE 0.75% vaginal gel [70g] See Rx Instruct ions, Vaginal, # 70 g, 0 total refill(s ), Hard Stop Vagina l (in the vagina ) Complet ed 10/05/2023 70.0 Ambulat ory Pharmac y metroNIDAZO LE 500 mg tablet 500 mg, Oral, BID, # 14 EA, 0 total refill(s ), Hard Stop Oral (given by mouth) Complet ed 09/28/2023 14.0 Ambulat ory Pharmac y Luana-BE (norethindr one) 0.35 tablet (28) 0.35 mg, Oral, Daily, # 84 EA, 3 total refill(s ), Hard Stop Oral (given by mouth) Complet ed 07/20/2023 84.0 Ambulat ory Pharmac y ondansetron 4 mg tablet 4 mg, Oral, every 6 hr, # 10 EA, 0 total refill(s ), Hard Stop Oral (given by mouth) Complet ed 02/18/2024 10.0 Ambulat ory Pharmac y ondansetron 8 mg oral tablet TAKE 1 TABLET BY MOUTH TWICE A DAY NEEDED FOR NAUSEA, # 60 EA, 5 total refill(s ), Acute Complet ed 09/02/2022 60.0 Ambulat ory Pharmac y ondansetron 8 mg tablet 8 mg, Oral, BID, # 60 EA, 0 total refill(s ), Hard Stop Oral (given by mouth) Complet ed 06/10/2024 60.0 Ambulat ory Pharmac y ondansetron 8 mg tablet 8 mg, Oral, Daily, # 30 EA, 0 total refill(s ), Hard Stop Oral (given by mouth) Discont inued 05/14/2024 30.0 Ambulat ory Pharmac y ONDANSETRON HCL (ONDANSETRO N HCL), 8MG, TABLET, ORAL, AUROBINDO PHARM, 30 ea. BOTTLE Active [id number] 2023 30 Pharmac y [employer] y Plaquenil 200 mg tablet 200 mg, Oral, BID, # 180 EA, 1 total refill(s ), Hard Stop Oral (given by mouth) Ordered 05/10/2025 180.0 Ambul at ory Pharmac y Plaquenil 200 mg tablet 200 mg, Oral, BID, # 180 EA, 0 total refill(s ), Hard Stop Oral (given by mouth) Discont inued 10/26/2023 180.0 Ambulat ory Pharmac y predniSONE 5 mg tablet 5 mg, Oral, Daily, # 30 EA, 2 total refill(s ), Hard Stop Oral (given by mouth) Complet ed 10/11/2024 30.0 Ambulat ory Pharmac y Ritalin LA 10 mg/24 hour capsule 10 mg, Oral, every morning, # 30 EA, 0 total refill(s ), Hard Stop Oral (given by mouth) Discont inued 03/13/2024 30.0 Ambulat ory Pharmac y sulfamethox azole-trime thoprim 800 mg-160 mg tablet = 1 tab(s), Oral, BID, # 6 EA, 0 total refill(s ), Hard Stop Oral (given by mouth) Complet ed 05/15/2024 6.0 Ambulat ory Pharmac y tretinoin 0.05% cream [20g] See Instruct ions, # 60 g, 3 total refill(s ), Hard Stop Ordered 05/10/2025 60.0 Ambul at ory Pharmac y tretinoin 0.05% cream [20g] See Instruct ions, Topical, # 60 g, 3 total refill(s ), Hard Stop Topica l (on the skin) Discont inued 05/14/2024 60.0 Ambulat ory Pharmac y Tretinoin 0.5mg/mL, (Retin-A), Cream, Topical Avoid exposure to sun.For external use. 11/15/2024 [id number] 4 2023 [facility] triamcinolo ne 0.1% cream [454g] See Instruct ions, # 454 g, 0 total refill(s ), Hard Stop Complet ed 05/18/2024 454.0 Ambulat ory Pharmac y triamcinolo ne 0.1% cream [454g] See Instruct ions, Topical, # 454 g, 0 total refill(s ), Hard Stop Topica l (on the skin) Discont inued 05/14/2024 454.0 Ambulat ory Pharmac y Triamcinolo ne Acetonide (Triamcinol one Acetonide Eq.) Cream .1% Topical For external use. 11/15/2024 [id number] 4 2023 [facility] venlafaxine 37.5 mg tablet See Instruct ions, Oral, # 30 EA, 1 total refill(s ), Hard Stop Oral (given by mouth) Complet ed 06/16/2024 30.0 Ambulat ory Pharmac y Vraylar 1.5 mg capsule 1.5 mg, Oral, Daily, # 30 EA, 2 total refill(s ), Hard Stop Oral (given by mouth) Ordered 04/11/2025 30.0 Ambul at ory Pharmac y Zithromax 250 mg tablet (6EA) See Instruct ions, Oral, # 6 EA, 0 total refill(s ), Hard Stop Oral (given by mouth) Complet ed 03/31/2024 6.0 Ambulat ory Pharmac y Allergies, Adverse Reactions, Alerts Combined list of allergies from Department of Defense and Veterans Affairs facilities. It does not include entries that were removed or entered in error. Substance Category Reaction Severity Reaction type Status Date Reported Comments Source gabapentin Drug allergy Active Ambulatory Pharmacy No Known Allergies Drug allergy (disorder) active [facility] Immunizations Combined list of available immunizations from the Department of Defense and Veterans Affairs facilities. Immunization Series Date Given Administered By Site Reaction Lot Number CVX Code Drug Cutter Down Status Comments Source influenza, injectable, quadrivalent, preservative free 02/23/ 2016 STEVAN, () Not Given influenza , injectabl e, quadrival ent, preservat fransico free DoD Vital Signs Combined list of inpatient and outpatient Vital Signs from Department of Defense and Veterans Affairs, ranging from 12 months to all on record, depending upon the facility. Vital Sign Value Date Comments Source No data available for this section Ambulatory Pharmacy Encounters Combined list of: 1) Encounters from Department of Veterans Affairs facilities going back up to thelast 18 months. 2) Encounters from the Department of Defense facilities going back up to 280 months. Location Location Details Encounter Type Encounter Number Reason For Visit Attending Provider ADM Date DC Date Status Disposition Source Ira hurst [facility] [place] [facility] OUTPATIENT [id number] Notes Entered by: MARY PEDRO 09 Nov 2012 1534 ------- ------- ------- ------- -- SRC - BROOK Ruggiero 11/09 Released w/o Limitations Ira meredith [facility] [place] Joseph [facility] [place] [facility] OUTPATIENT [id number] ob nausia ROB Malave 11/20 Released w/o Limitations [facility] [place]) [facility] OUTPATIENT [id number] sore throat/ fever-3 months HAYLEY Dunlap 01/01 Released w/o Limitations [facility] [employer] [facility]) [facility]([employer] [place]) OUTPATIENT [id number] Notes Entered by: DIOGO ANNE 01 Jan 2013 1514 ------- ------- ------- ------- -- ROBERT Flores 01/01 Released w/o Limitations [facility] ) TELE CONSULT [id number] Notes Entered by: LUIZ STEVEN 16 Jan 2013 1458 ------- ------- ------- ------- -- Medical in-proc ROBERTO Ernandez 01/16 [facility]( [employer] [facility]) [facility] ) TELE CONSULT [id number] Notes Entered by: LUIZ STEVEN 23 May 2013 1030 ------- ------- ------- ------- -- OB care in -April 2013 ONOFRE STEVEN 05/23 [facility] Group( [employer] ) [facility] [employer] [facility] ) TELE CONSULT [id number] Notes Entered by: JUSTIN ENRIQUE 13 Jun 2013 0847 ------- ------- ------- ------- -- NETWORK RESULTS - OB 05/05 HAYLEY RIVERA 06/13 [facility]( [employer] ) [facility](Non -Active Duty [employer]) TELE CONSULT [id number] Notes Entered by: KEN PEDRO 30 Oct 2013 1551 ------- ------- ------- ------- -- Refer l request ROBERTO DAVID 10/30 [facility](N on-Acti ve Duty [employer]) [facility](Non -Active Duty [employer]) OUTPATIENT [id number] referra l to eating disorde r special kermitt DARINEL VILLA 11/22 Released w/o Limitations [facility](N on-Acti ve Duty [employer]) [facility]([employer]) TELE CONSULT [id number] Notes Entered by: KEVIN WRIGHT 13 Aug 2014 1529 ------- ------- ------- ------- -- KODAK KHAN 08/13 [facility](Rufus daniels) [facility]([employer]) TELE CONSULT [id number] Notes Entered by: Juancho BARBER 05 Sep 2014 0910 ------- ------- ------- ------- -- REF KODAK PEREZ 09/05 [facility]([employer]uf[employer] daniels) [facility]) TELE CONSULT [id number] Notes Entered by: CHELSEA PLASCENCIA SA 15 Apr 2015 1407 ------- ------- ------- ------- -- Pregnan cy test results SENIA ROMANO 04/15 [facility]) [facility]) TELE CONSULT [id number] Notes Entered by: TEE HUTCHISON 12 May 2015 1607 ------- ------- ------- ------- -- ER visit TEE HUTCHISON 05/12 [facility]) [facility]([employer]) OUTPATIENT [id number] Notes Entered by: Juancho TREVIÑO 19 May 2015 0807 ------- ------- ------- ------- -- Inpt F/U VITOR TREVIÑO 05/19 Released w/o Limitations [facility]([employer]) [facility]([employer]) TELE CONSULT [id number] Notes Entered by: Cong JUAN 19 May 2015 1535 ------- ------- ------- ------- -- Innereidae nt ROGE Guzmán 05/19 Other Not Elsewhere Classified [facility](U tilizat ion Managem ent) Ira [facility]REZ([id number] [facility] OUTPATIENT [id number] ROBERT Carrillo 11/04 [facility] Limitations [facility] [place] [facility]([address]) Ira Joseph r [facility] Jaicnto RAMÍREZ([address]) TELE CONSULT [id number] Notes Entered by: JUSTIN JOYCE 12 Nov 20152047 ------- ------- ------- ------- -- additio nal testing ROBERT JOYCE 11/13 [facility] [place] [facility]([address]) Ira Joseph r [facility] [place] RMAÍREZ(Cardio logy) OUTPATIENT [id number] HAZEL Mireles 11/20 [facility] w/o Limitations [facility] [place] [facility](Card iology) Ira hurst [facility] [place] RAMÍREZ([address]) TELE CONSULT [id number] ROBERT JOYCE 11/26 [facility] [place] RAM[facility]REZ([address]) Ira Joseph r [facility] [place] RAMÍREZ([address]) TELE CONSULT [id number] Notes Entered by: KELY JACQUES 03 Dec 2015 1009 ------- ------- ------- ------- -- call pt re [facility] labs faxed to [phone] LAKEISHA JARRETT 12/03 [facility] [place] [facility]([address]) Ira Joseph r [facility] [place] RAMÍREZ([address]) TELE CONSULT [id number] Notes Entered by: Lala BUENO 28 Apr 2016 1057 ------- ------- ------- ------- -- Attempt ed [facility] contact CASANDRA Worley 04/28 [facility] [place] [facility]([address]) Ira hurst [facility] [place] [facility] TELE CONSULT [id number] Notes Entered by: HERIBERTO TRUJILLO 21 Jun 2016 1544 ------- ------- ------- ------- -- NETWORK RESULTS NOTIFIC ANTONINA CASTRO FITZ 06/21 Ira meredith [facility] [place]([address]) [place] hurst [facility] [place]([address]) TELE CONSULT [id number] Notes Entered by: EMRE CARTWRIGHT 19 Jan 2018 1520 ------- ------- ------- ------- -- Patient states she would like referra l to belt fixer thanks JOS KELLEY 01/19 [facility] [place]([address]) [facility](Non -Active Duty [place]) OUTPATIENT [id number] referra margarita neuro ASPEN CHACON 06/01 Released w/o Limitations [facility]([employer] on-Acti ve Duty [place]) [facility] [employer] [place]) OUTPATIENT [id number] 0 preg test MARKOS JORDAN 06/01 Left Against Medical Advice [facility]([employer] [facility]) [facility](Non -Active Duty [place]) TELE CONSULT [id number] Notes Entered by: PARAMJIT MCNALLY 04 Jun 2021 1540 ------- ------- ------- ------- -- Pt wants to know if her lab results are back. Pls call HEATHER SAL 06/04 Referred for Appointment [facility]([employer] ve [employer] [place]) [facility]) TELE CONSULT [id number] Notes Entered by: TONYA NASH 05 Jun 2021 1111 ------- ------- ------- ------- -- NETWORK RESULTS - URGENT CARE - 021 ASPEN CHACON 06/05 [facility] [employer]) [facility](Non -Active Duty [employer]) OUTPATIENT [id number] virtual lab results ASPEN CHACON 06/09 Released w/o Limitations [facility](N on-Acti ve Duty [employer]) [facility](Non -Active Duty [employer]) OUTPATIENT [id number] discuss medicat ion klonopi n [phone] WILLIAN MALONEY 06/16 Released w/o Limitations [facility]([employer] on-Acti ve [employer]) [facility](Non -Active Duty [employer]) OUTPATIENT [id number] virtual med renewal [id number] ASPEN CHACON 06/17 Released w/o Limitations [facility](N on-Acti ve Duty [employer]) [facility](Non -Active Duty [employer]) TELE CONSULT [id number] Notes Entered by: PABLO AGUILAR 03 Jul 2021 1209 ------- ------- ------- ------- -- MESSAGE FOR HEATHER ALVES 07/03 Other Not Elsewhere Classified [facility](N on-Acti ve [employer]) [facility](Non -Active Duty [employer]) TELE CONSULT [id number] Notes Entered by: SOFY EAST 13 Jul 2021 1346 ------- ------- ------- ------- -- Network Results -Neuros urgery 020- CARLOS ALBERTOCELI ASPEN W 07/13 [facility] Group(N on-Acti ve Duty [employer]) [facility](Non -Active Duty [employer]) TELE CONSULT [id number] Notes Entered by: JAD MARTINEZ 09 Dec 2021 1411 ------- ------- ------- ------- -- Network Results - Neurosu rgery 021 OSWALDO , ASPEN W 12/09 [facility](N on-Acti ve Duty [employer]) [facility](Non -Active Duty [employer]) TELE CONSULT [id number] Notes Entered by: JAD MARTINEZ 10 Dec 2021 0938 ------- ------- ------- ------- -- Network Results - Gynecol ogy 021 BECKSMARU , ASPEN W 12/10 [facility](N on-Acti ve Duty [employer]) Procedures Combined list of: 1) Procedures from Department of Veterans Affairs facilities going back up to thelast 18 months, not all VA non-surgical procedures are included; 2) All procedures from the Department of Defense facilities. Procedure Procedure Type Code Date Perfomer Comments [facility] e TELE ASSESS & MGT SRV PROV QUAL NONPHYS HLTH CARE PRO TO EST PAT,PARENT,GUARD NOT ORIG REL ASSESS & MGT SRV PROV W/IN PREV 7 DAYS NOR LEAD ASSESS & MGT SRV/PX W/IN NXT 24 HR/SOON APT;5-10 MIN MED DIS 018 DoD TELE ASSESS & MGT SRV PROV QUAL NONPHYS HLTH CARE PRO TO EST PAT,PARENT,GUARD NOT ORIG REL ASSESS & MGT SRV PROV W/IN PREV 7 DAYS NOR LEAD ASSESS & MGT SRV/PX W/IN NXT 24 HR/SOON APT;5-10 MIN MED DIS 016 DoD ECHOCARDIOGRAPHY,TRA NSTHORACIC,REAL-TIME W IMAGE DOCUMENTATION (2D),INCLUDES M-MODE RECORDING,WHEN PERFORMED,COMPLETE,W ITH SPECTRAL DOPPLER ECHOCARDIOGRAPHY,AND W COLOR FLOW DOPPLER ECHOCARDIOGRAPHY 016 DoD TELE ASSESS & MGT SRV PROV QUAL NONPHYS HLTH CARE PRO TO EST PAT,PARENT,GUARD NOT ORIG REL ASSESS & MGT SRV PROV W/IN PREV 7 DAYS NOR LEAD ASSESS & MGT SRV/PX W/IN NXT 24 HR/SOON APT;5-10 MIN MED DIS DoD WAIVER SERVICES; NOT OTHERWISE SPECIFIED (NOS) DoD WAIVER SERVICES; NOT OTHERWISE SPECIFIED (NOS) DoD WAIVER SERVICES; NOT OTHERWISE SPECIFIED (NOS) DoD TELE ASSESS & MGT SRV PROV QUAL NONPHYS HLTH CARE PRO TO EST PAT,PARENT,GUARD NOT ORIG REL ASSESS & MGT SRV PROV W/IN PREV 7 DAYS NOR LEAD ASSESS & MGT SRV/PX W/IN NXT 24 HR/SOON APT;5-10 MIN MED DIS DoD WAIVER SERVICES; NOT OTHERWISE SPECIFIED (NOS) [facility] CASE MANAGEMENT, EACH 15 MINUTES [facility] CASE MANAGEMENT, EACH 15 MINUTES [facility] EDUCATION &TRAINING, PATIENT SELF-MGT QUALIFIED, 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 USING STDIZED CURRICULUM, [id number] W THE PATIENT (COULD INCL CAREGIVER/FAMILY) EA 30 MIN; INDIVIDUAL PATIENT 013 [facility] Non-Physician Phone Call To Patient/Provider Brief (5-10min) Non-Physician Phone Call To Patient/Provider Brief (5-10min) [phone] JOS KELLEY [facility] Non-Physician Phone Call To Patient/Provider Brief (5-10min) Non-Physician Phone Call To Patient/Provider Brief (5-10min) [phone] LAKEISHA JARRETT [facility] Echocardiogram Transthoracic 2-D With Spectral And Color Flow Doppler Echocardiogram Transthoracic 2-D With Spectral And Color Flow Doppler [phone] YOVANNY PALMER [facility] OB Services Antepartum Care Only 1st Visit, With Flowsheet OB Services Antepartum Care Only 1st Visit, With Flowsheet [id number] ROBERT JOYCE DoD Case Management, each 15 minutes 015 VITOR TREVIÑO DoD Case Management, each 15 minutes 015 VITOR TREVIÑO [facility] Patient Counseling Medical Management Individual Patient Patient Counseling Medical Management Individual Patient [phone] ROBERT ANNE DoD Waiver services; not otherwise specified (NOS) ALICE LONG [facility] Non-Physician Phone Call To Patient/Provider Brief (5-10min) Non-Physician Phone Call To Patient/Provider Brief (5-10min) [id number] HEATHER SAL [facility] No data available for this section Ambulato ry Pharmacy Social History Combined list of available smoking, tobacco, and other social history from [facility] and [facility] facilities. Social History Type Response Date Comment Sour e This section is an empty social history section. DoD Assessment and Plan Combined list of future care activities from Department of Defense and Veterans Affairs facilities (e.g., assessment and plan notes, appointments, orders, and referrals). Additional future care activities may be listed in the Plan of Care section. Result Assessment and Plan Date Source Assessment and Plan No data available for this section 11/16/2024 Ambulatory Pharmacy Functional Status Combined list of recent functional and cognitive assessments recorded at [facility] and [facility] (VA).VA Functional Nuckolls Measurement (FIM) Scale: 1 = Total Assistance (Subject = 0% +), 2 = Maximal Assistance (Subject = 25% +), 3 = Moderate Assistance (Subject = 50% +), 4 = Minimal Assistance (Subject = 75% +), 5 = Supervision, 6 = Modified Nuckolls (Device), 7 = Complete Nuckolls (Timely, Safely). Assessment Date/Time Source Assessment Type Assessment Skill Assessment Score Assessment Details No data available for this section
--- OUTSIDE RECORDS SUMMARY | 2024-11-16 14:00 | XMS_ITS | Continuity of Care Document ---
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 OUT OF 3 [...] THOROUGHLY DOCUMENT EACH ELEMENT THAT IS COVERED [email or web address] Not available 11/16/2024 09:36:08 Plan of Treatment Reminders Order Date Submit Date Provider Last Modified By Organization Details Last Modified Time Details Appointments FOLLOW UP 2024 09:00A M DR CASTELLANO Not available Not available Not available FOLLOW UP 2024 03:45P M DR CASTELLANO Not available Not available Not available Lab C-reactiv e protein, quantitat fransico, serum or plasma 2024 025 [facility], [address] [place] [address], [place], [address], 11/16/2024 09:38:17 erythrocy te sedimenta tion rate by lorenzo n method 2024 025 [facility], [address] [place] [address], [address], 11/16/2024 09:38:17 dsDNA Ab, serum 2024 [facility], [address] [place] [address], [address], 11/16/2024 09:38:17 rf (rheumato id factor), serum 2024 [facility], [address] [place] [address], [address], 11/16/2024 09:38:17 C3 + C4 (compleme nt), serum 2024 [facility], [address] [place] [address], [address], 11/16/2024 09:38:17 sjogren antibody panel (ssa, ssb, ro, la), serum 2024 [email or web address] Not available 11/16/2024 10:24:50 anti-ssdn a Ab, serum 2024 [facility], [address] [place] [address], [address], 11/16/2024 09:38:17 Referral rheumatol ogist referral 2024 [facility], [address] [place] [address], [address], 11/16/2024 09:43:42 Procedures None recorded. Surgeries None recorded. Imaging None recorded. Medication Orders Seroquel 50 mg tablet 2024 [id number], [address], [place], [id number], 11/16/2024 09:35:00 Adderall 10 mg tablet 2024 [facility], [address], [place], [id number], 11/16/2024 09:34:59 Patient TargetsNo targets recorded. Patient InstructionsNo instructions recorded. 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 Anti-nuclear factor detected Referring Physician: Gabe Castellano, Internal Medicine, Encounter Date: 11/16/2024 Problems Name Problem SNOMED Code Status Onset Date Resolution Date Notes Provider Name and Address Organization Details Recorded Time Adult attentio n deficit hyperact ivity disorder 191246812 Active 2023 Gabe Castellano DO [address] [place] [address], [address], [facility] 4 11:16:38 Bipolar disorder 20881074 Active 2023 Gabe Castellano DO [address] [place] [address], [address], [facility] 4 11:16:52 Trigemin al neuralgi a 67132713 Active 2023 s/p surgery brain X 4 including 2 decompres sions secondary to infection Gabe Castellano DO [address] [place] [address], [address], [facility] 4 11:21:13 Anti-nuc lear factor detected 681052311 Active 2023 Gabe Castellano DO [address] [place] [address], [address], [facility] 4 11:26:07 Autoimmu ne thyroidi tis 96637357 Active 2023 Gabe Castellano DO [address] [place] [address], [address], [facility] 4 11:28:56 Fatigue 10901122 Active 2023 Gabe Castellano DO [address] [place] [address], [address], [facility] 4 11:31:16 Problem Notes None recorded. Medical Equipment None Reported. Allergies Allergen ID Allergen Name Allergen Category Reaction Reaction Severity Criticality Documentation Date Start Date Code Code System Note Provider Name and Address Organization Details Recorded Time 8634 gabapenti n medicatio n other Not available Not available 10/23/2024 45629 RxNorm Aristeo castro [facility] 4 10:43:25 8635 carbamaze pine medicatio n rash Not available Not available 10/23/20242001 RxNorm Aristeo castro [facility] 4 10:43:38 8636 clonazepa m medicatio n Not available Not available Not available 10/23/2024 2598 RxNorm Addic tive Poten tial Aristeo castro [facility] 4 10:44:21 8637 acetamino phen / oxycodone medicatio n vomiting Not available Not available 10/23/2024 50385 3 RxNorm Aristeo castro [facility] 4 10:44:36 Medications Name Sig Start Date [...] Updated DateTime 5 162.56 cm 18 kg/m2 34101.2 g 89 /min 100 % 100 % 98 mm[Hg] 60 mm[Hg] Kristel John [facility] 5 09:05:08 Social History Question Answer Notes LastModified by Organizat ion Details LastModified Time Tobacco Smoking Status Current Every Day Smoker Vaping, Smoking Cessation Interest Aristeo castro [facility] 10/23/2024 10:49:07 What Was The [...] SNOMED-CT Code Diagnosis ICD10 Code Diagnosis Note [id number] DO Ric Ortiz [facility] [address] [facility],[place] [address] 10/23/2024 10:35:46 10/23/2024 11:39:12 Depression screening 830903875 Z13.31 hx of Adult atte ntion deficit hyperactivity disorder 778657786 F90.9 will stop methylphen and start adderall Trigeminal neuralgia 316 01782 G50.0 will try to get her on a program for iv infus Vyepti Anti-nucle ar factor detected 639914064 R76.8 had been on hydro chlor in the past but lupus was ruled out Autoimmune thyroiditis 92364534 E06.3 Fatigue 76539321 R53.83 [id number] Gabe Castellano DO [facility] [place] [address] [facility],[place] [address] 11/16/2024 08:57:04 11/16/2024 09:43:42 Anti-nuclear factor detected 512197132 R76.8 had been on hydro chlor in the past but lupus was ruled out Depression screening 171 283592 Z13.31 hx of Adult atte ntion deficit hyperactivity disorder 497154431 F90.9 will stop methylphen and start adderall Health Concerns Section Related Observation LastModified by Organization Detai ls LastModified Time None Recorded Concern Status LastModified by Organization Details LastModified Time None Recorded Payers Encounter Date Sequence Insurance Name Policy Number Policy [place] Covered Member ID [place] Member ID Guarantor Name 11/16/2024 1 [facility] ON OR AFTER 10/24/2024 - HUMA[employer] () Velma Ruiz [id number] Velma Ruiz Notes Date Note Type Note Provider Name a nd Address Organization Details Recorded Time text/html has taken the meds as prescibedrelates that overall felt better and relates has been more focused but this wears off and will have her go back to her unfocused staterelates in past has been on a bid tid dose patternthis had workedalso discussed the lab Gabe Castellano DO [address] [facility] [address], [place], [address], [facility] 11/16/2024 09:36:24 OBGyn Episode No OBEpisode recorded.
--- OUTSIDE RECORDS SUMMARY | 2024-11-16 14:00 | XMS_ITS | Continuity of Care Document ---
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 [address] [place] [address], [address], . tel:[phone] Referring Provider: Jin Link MD [place], [address] [place] [address], [id number]. tel:[phone] [facility], [address] [place] [address], [address], tel:[phone] [facility] Follow Up of Facial Pain (chief complaint) Trigeminal neuralgia 9 Mj Capellan. [address] [place] [address], [facility], . tel: [phone] Referring Provider: Jin Heath, [address] [place] [address], [id number]. tel:[phone] Office/outpa tient visit, est [facility], [address] [place] [address], [address], tel:[phone] [facility] Follow Up of Facial Pain (chief complaint) Trigeminal neuralgia Sep-2 0-201 9 Barker Timi. [address] [place], [address], [place]. tel: [phone] Referring Provider: Jin Heath, [address] [place] [address], [id number]. tel:[phone] Office/outpa tient visit, est [facility], [address] [place] [address], [facility], tel:[phone] [facility] Follow Up of Facial Pain (chief complaint) Trigeminal neuralgiaBody mass index (BMI) 19 or less, adult Mar-2 0-201 9 Mj Martínezter. [address] [place] [address], [address], [place]. tel: [phone] Referring Provider: Jin Heath, [address] [place] [address], [id number]. tel:[phone] [facility], [address] [place] [address], [facility], [place] tel:[phone] [facility] Trigeminal neuralgia Dec-2 7-201 8 Mj Capellan. [address] [place], [address], [place]. tel: [phone] Office/outpa tient visit, est [facility], [address] [place] [address], [address], [place] tel:[phone] [facility] Follow Up of Facial Pain (chief complaint) Trigeminal neuralgia Dec-2 0-201 8 Mj Capellan. [address] [place] [address], [address], [place]. tel: [phone] [facility], [address] [place] [address] [place], [address] [place] [address] tel:[phone] [facility] Facial Pain (chief complaint) Body mass index (BMI) 19 or less, adultTrigemin al neuralgia 8 Mj Capellan. [address] [place], [place], [address] [place] [address]. tel:[phone] Referring Provider: Jin Link MD Kumar, [address] [place] [address], [id number]. tel:[phone] Family History Family Member Type Diagnosis Age At Onset Maternal grandmother Problem (finding) Diabetes mellit us Mother Problem (finding) Thyroid disorder Maternal aunt Problem (finding) chromes disease Paternal grandfather Problem (finding) Diabetes mellit us Maternal grandfather Problem (finding) Diabetes mellit us Father Problem (finding) Pancreatitis Paternal grandmother Problem (finding) Diabetes mellit us Payers Payer name Insurance type Covered green party ID Authoriza tion(s) [id number] Social History Type Description Quantity Date Captured [...] gain completed Goal Tobacco cessation counseling completed Goal Dietary education for weight gain completed Referral Ordered: EEG Awake ordered Referral [...] has been taking chocolate CBD bars from [place], [place]. Follow Up of Facial Pain Onset: [...] is going to have vascular surgery with [facility]. She wanted to know about possibly getting [...]
--- OUTSIDE RECORDS SUMMARY | 2024-11-16 14:01 | XMS_ITS | Continuity of Care Document ---
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 2 OUT OF [...] THAT IS COVERED Not available 10/23/2024 11:24:02 Plan of Treatment Reminders Order Date Submit Date Provider Last Modified By Organization Details Last Modified Time Details Appointments FOLLOW UP 15 2024 09:00A M DR CASTELLANO Not available Not available Not available FOLLOW UP 15 2024 03:45P M DR CASTELLANO Not available Not available Not available Lab RODERICK (antinucl ear antibodie s) screen, serum 2023 024 [facility] Not available 11/09/2024 12:21:50 C-reactiv e protein, quantitat fransico, serum or plasma 2023 024 Not available 10/23/2024 11:46:24 erythrocy te sedimenta [...] 10/23/2024 11:46:24 CBC w/ auto diff 2023 Not available 10/23/2024 11:46:24 CMP, serum or plasma 2023 [facility] Not available 11/06/2024 12:35:12 iron + TIBC + ferritin, serum 2023 [facility] Not available 11/06/2024 12:35:12 Referral None recorded. Procedures None recorded. Surgeries None recorded. Imaging None recorded. Medication Orders Seroquel 25 mg tablet 2023 [place], [address] [place], [id number], 10/23/2024 11:35:57 Adderall 10 mg tablet 2023 024 [facility], [address] [place], [place], [id number], 10/23/2024 11:35:57 Patient TargetsNo targets recorded. Patient Instructions Encounter Date Encounter Id Patient Instructions Last Modified By Organization Details Last Modified Time 10/23/2024 [id number] attention defici t hyperactivity disorder (ADHD) in adults: care instructions Not available 10/23/2024 11:35:51 Reason for Referral None Reported. Problems Name Problem SNOMED Code Status Onset Date Resolution Date Notes Provider Name and Address Organization Details Recorded Time Adult attentio n deficit hyperact ivity disorder 355848582 Active 2023 Gabe Castellano DO [address] [place] [address], [address], [facility] 4 11:16:38 Bipolar disorder 41947732 Active 2023 Gabe Castellano DO [address] [place] [address], [address], [facility] 4 11:16:52 Trigemin al neuralgi a 90461438 Active 2023 s/p surgery brain X 4 including 2 decompres sions secondary to infection Gabe Castellano DO [address] [place] [address], [address], [facility] 4 11:21:13 Anti-nuc lear factor detected 516156116 Active 2023 Gabe Castellano DO [address] [place] [address], [address], [facility] 4 11:26:07 Autoimmu ne thyroidi tis 66820612 Active 2023 Gabe Castellano DO [address] [place] [address], [address], [facility] 4 11:28:56 Fatigue 42462516 Active 2023 Gabe Castellano DO [address] [place] [address], [address], [facility] 4 11:31:16 Problem Notes None recorded. Medical Equipment None Reported. Allergies Allergen ID Allergen Name Allergen Category Reaction Reaction Severity Criticality Documentation Date Start Date Code Code System Note Provider Name and Address Organization Details Recorded Time 8634 gabapenti n medicatio n other Not available Not available 10/23/2024 88513 RxNorm Aristeo castro [facility] 4 10:43:25 8635 carbamaze pine medicatio n rash Not available Not available 10/23/20242001 RxNorm Aristeo castro [facility] 4 10:43:38 8636 clonazepa m medicatio n Not available Not available Not available 10/23/2024 2598 RxNorm Addic tive Poten adriennel Aristeo castro [facility] 4 10:44:21 8637 acetamino phen / oxycodone medicatio n vomiting Not available Not available 10/23/2024 63438 3 RxNorm Aristeo castro [facility] 4 10:44:36 Medications Name Sig Start [...] and Address Organization Details Last Updated DateTime 162.56 cm 18.2 kg/m2 30417.7 9 g 84 /min 100 % 100 % 126 mm[Hg] 60 mm[Hg] Aristeo Whittaker MA [facility] 10:51:54 Social History Question Answer Notes LastModified by Organizat ion Details LastModified Time Tobacco Smoking Status Current Every Day Smoker Vaping, Smoking Cessation Interest Aristeo castro [place] Jen [facility] 10/23/2024 10:49:07 What Was [...] SNOMED-CT Code Diagnosis ICD10 Code Diagnosis Note [id number] Gabe Castellano DO [facility] [address] [facility],[place] [address] 10/23/2024 10:35:46 10/23/2024 11:39:12 Depression screening 013963113 Z13.31 hx of Adult atte ntion deficit hyperactivity disorder 997537914 F90.9 will stop methylphen and start adderall Trigeminal neuralgia 316 [address] G50.0 will try to get her on a program for iv infus Vyepti Anti-nucle ar factor detected 293719753 R76.8 had been on hydro chlor in the past but lupus was ruled out Autoimmune thyroiditis 42857525 E06.3 Fatigue 53093342 R53.83 Health Concerns Section Related Observation LastModified by Organization Detai ls LastModified Time None Recorded Concern Status LastModified by Organization Details LastModified Time None Recorded Payers Encounter Date Sequence Insurance Name Policy Number Policy [place] Covered Member ID [place] Member ID Guarantor Name 10/23/2024 1 [facility] PRIOR TO 10/24/2024 - [employer] () Velma Ruiz [id number] Velma Ruiz Notes Date Note Type Note Provider Name a wv Address Organization Details Recorded Time 10/23/2024 text/html here Gabe Castellano DO [address] [facility], [place], [address], [facility] 10/23/2024 11:37:37 OBGyn Episode No OBEpisode recorded.
--- OUTSIDE RECORDS SUMMARY | 2024-11-16 14:01 | XMS_ITS ---
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 Generated for Printi krysta/Jeannine/eTransmitting on:?11/16/2024 02:01 PM EST
[2024-11-16 14:40] LABS: Erythrocyte Sedimentation Rate 3 MM/HR (0-20)
[2024-11-16 14:58] LABS: C Reactive Protein < 0.10 mg/dL (< or = 0.50)
[2024-11-16 15:00] LABS: Rheumatoid Factor < 13.0 IU/mL (<15.0)
[2024-11-19 08:58] LABS: Complement C3 98 mg/dL (83-193)
[2024-11-19 21:48] LABS: Anti DNA DS Antibody 1 IU/mL
[2024-11-21 12:44] LABS: Anti DNA DS Antibody 1 IU/mL; Antibody to SS-A Antigen <1.0 NEG AI (<1.0 NEG); Antibody to SS-B Antigen <1.0 NEG AI (<1.0 NEG)
== END 2024-11-16 11:51 | disposition home or self-care (01) ==
LOC: HO.HMGCLDS 11:50
PROVIDERS: PCP Internal Medicine; Visit Provider Internal Medicine
DX: R76.8 Other specified abnormal immunological findings in serum (principal)
CPT/HCPCS: 36415; 85652; 86140; 86160; 86225; 86235; 86431